=== PATIENT | female | born 1950 | race Caucasian/White ===

== ENCOUNTER 2022-05-13 08:11 | Outpatient (CLI) | payer MEDICARE, SELFPAY ==
[2022-05-13 09:38] LABS: Albumin* 4.1 g/dL (3.3-5.0); Chloride* 106 mmol/L (96-114); Potassium* 4.2 mmol/L (3.6-5.1)
[2022-05-13 09:40] LABS: Cholesterol* 226 mg/dL (90-199); Creatinine* 0.8 mg/dL (0.5-1.5); Estimated Glomerular Filt Rate 79.71
[2022-05-13 09:41] LABS: Alanine Aminotransferase* 42 U/L (4-35); Alkaline Phosphatase* 86 U/L (40-150); Aspartate Amino Transferase* 39 U/L (12-35); Bilirubin Total* 0.7 mg/dL (0.1-1.5); Blood Urea Nitrogen* 17 mg/dL (7-30); Carbon Dioxide* 28 mmol/L (20-32); Glucose* 108 mg/dL (60-115); Triglycerides* 140 mg/dL (40-149)
[2022-05-13 09:42] LABS: Calcium* 9.4 mg/dL (8.4-10.6); HDL Cholesterol* 48 mg/dL (>=50); LDL Cholesterol Calculated 150 mg/dL (<100)
[2022-05-13 09:48] LABS: Sodium* 140 mmol/L (135-149)
[2022-05-13 19:22] LABS: Vitamin D 25 Hydroxy* 19 ng/mL (30-80)
== END 2022-05-13 08:12 | disposition home or self-care (01) ==
PROVIDERS: PCP Family Medicine; Visit Provider Family Medicine
DX: Z01.419 Encounter for gynecological examination (general) (routine) without abnormal findings (principal); E78.5 Hyperlipidemia, unspecified; E55.9 Vitamin D deficiency, unspecified; E66.9 Obesity, unspecified; R74.8 Abnormal levels of other serum enzymes; R73.03 Prediabetes; R79.89 Other specified abnormal findings of blood chemistry
CPT/HCPCS: 80053; 80061; 82306

== ENCOUNTER 2022-05-21 14:06 | Outpatient (CLI) | payer MEDICARE, SELFPAY ==
--- NOTE | 2022-05-21 14:00 | CRLHL7_ITS ---
For Patients: As a result of the Century Cures Act, medical imaging exams and procedure reports are released immediately into your electronic medical record. You may view this report before your referring provider. If you have questions, please contact your health care provider. DXA BONE MINERAL DENSITY STUDY Current height (in): 67. Weight (lb): 220. Menopause age: 53. Ethnicity: White. 1. Have you had a previous hip or vertebral fracture? No. 2. Have you had any fractures during your adult life which did not result from significant trauma (e.g., auto accident)? No. 3. Did either of your parents have a hip fracture? No. 4. Do you smoke? No. 5. Have you ever taken Glucocorticoids? No. 6. Do you have rheumatoid arthritis? No. 7. Do you have secondary osteoporosis? No. 8. Do you drink 3 or more alcoholic drinks per day? No. 9. Are you being treated for osteoporosis? No. 10. Have you ever taken any of the following medications: Actonel, Evista, Fosamax, Miacalcin, Reclast, Boniva, Forteo, HRT (i.e. estrogen/hormone therapy), Protelos, Prolia, Vitamin D, Calcium, other ??? please specify. ANSWER: Yes, vitamin D, calcium. 11. Do you have any of the following medical conditions: Anorexia or bulimia, asthma or emphysema, end stage renal disease, hyperparathyroidism, any seizure disorders, cancer, inflammatory bowel diseases, hysterectomy, other ??? please specify. ANSWER: No. 12. What was your maximum height (inches)? 67.5. 13. Do you perform weight bearing exercise regularly? No. 14. Do you regularly consume dairy products? Yes. 15. Do you drink caffeinated beverages? Yes. 16. At what age did your period start? 14. 17. Are you premenopausal? No. 18. How many full term pregnancies have you had? 1. 19. Have you ever missed your period for more than 6 months in a row (not including or menopause)? No. TECHNIQUE: Bone mineral density study was performed using the [employer]. FINDINGS: The results of the study expressed as bone mineral density (BMD) are as follows: Lumbar spine L1 to L4: BMD: 0.982 g/cm2. T-score: -0.6. Z-score: 1.5. Neck Left: BMD: 0.712 g/cm2. T-score: -1.2. Z-score: 0.5. Right: BMD: 0.735 g/cm2. T-score: -1.0. Z-score: 0.8. Total Left: BMD: 0.921 g/cm2. T-score: -0.2. Z-score: 1.3. Right: BMD: 0.937 g/cm2. T-score: -0.0. Z-score: 1.4. IMPRESSION: Osteopenia. *Comparison exams done prior to 04/2020 were performed on different unit, [facility]. COMPARISON: Compared with scan of 10/20/2018, the bone mineral density has increased by 3.4 percent at the spine and increased by 2.3 percent at the hip. FRAX 10-year Fracture Risk Major Osteoporotic Fracture: 8.5 percent Hip Fracture: 0.9 percent Reported Risk Factors: [place] ) Neck BMD = 0.712, BMI = 34.5 Easton Schultz M.D. Diagnostic Radiologist [email or web address] LOULOU/Dictated by: Easton Schultz MD @ 05/21/2022 3:14:00 PM (Electronically Signed)
== END 2022-05-21 14:07 | disposition home or self-care (01) ==
LOC: RAD 14:06
PROVIDERS: PCP Family Medicine; Visit Provider Family Medicine
DX: Z13.820 Encounter for screening for osteoporosis (principal); M85.89 Other specified disorders of bone density and structure, multiple sites; Z78.0 Asymptomatic menopausal state
CPT/HCPCS: 77080

== ENCOUNTER 2022-05-29 09:22 | Outpatient (CLI) | payer MEDICARE, SELFPAY ==
--- NOTE | 2022-05-29 09:15 | CRLHL7_ITS ---
For Patients: As a result of the Century Cures Act, medical imaging exams and procedure reports are released immediately into your electronic medical record. You may view this report before your referring provider. If you have questions, please contact your health care provider. BILATERAL MAMMOGRAM WITH COMPUTER-AIDED DETECTION TECHNIQUE: CC and MLO views were obtained. These mammographic images have been obtained using full-field digital technique. These mammographic images were interpreted with the benefit of computer-aided detection. COMPARISON FILM: 02/03/21, 10/04/18, 02/22/17 FINDINGS: There are scattered areas of fibroglandular density IMPRESSION: There is no radiographic evidence for malignancy. ASSESSMENT: BI-RADS Category 1: Negative RECOMMENDATION: Routine screening mammogram in 1 year. A lay language report of this examination will be provided to the patient. Larissa Kendall M.D. Diagnostic/Breast Radiologist [email or web address] LOULOU/Dictated by: Larissa Kendall MD @ 05/29/2022 4:39:00 PM (Electronically Signed)
== END 2022-05-29 09:23 | disposition home or self-care (01) ==
LOC: MAMMO 09:23
PROVIDERS: PCP Family Medicine; Visit Provider Family Medicine
DX: Z12.31 Encounter for screening mammogram for malignant neoplasm of breast (principal)
CPT/HCPCS: 77063; 77067

== ENCOUNTER 2022-08-20 08:19 | Outpatient (CLI) | payer MEDICARE, SELFPAY ==
[2022-08-20 10:35] LABS: Albumin* 4.2 g/dL (3.3-5.0)
[2022-08-20 10:38] LABS: Bilirubin Direct* 0.1 mg/dL (0.0-0.5); Bilirubin Total* 0.4 mg/dL (0.1-1.5); Cholesterol* 149 mg/dL (90-199); Total Protein* 6.9 g/dL (6.0-8.3); Triglycerides* 88 mg/dL (40-149)
[2022-08-20 10:39] LABS: Alanine Aminotransferase* 25 U/L (4-35); Alkaline Phosphatase* 87 U/L (40-150); Aspartate Amino Transferase* 26 U/L (12-35); HDL Cholesterol* 53 mg/dL (>=50); LDL Cholesterol Calculated 78 mg/dL (<100)
[2022-08-20 10:53] LABS: Vitamin D 25 Hydroxy* 29 ng/mL (30-80)
== END 2022-08-20 08:20 | disposition home or self-care (01) ==
PROVIDERS: PCP Family Medicine; Visit Provider Family Medicine
DX: E55.9 Vitamin D deficiency, unspecified (principal); E78.5 Hyperlipidemia, unspecified; R79.89 Other specified abnormal findings of blood chemistry
CPT/HCPCS: 80061; 80076; 82306

== ENCOUNTER 2023-05-24 08:21 | Outpatient (CLI) | payer MEDICARE, SELFPAY | END 2023-05-24 08:22 | disposition home or self-care (01) | LOC: NFLDREF 12:53 | PROVIDERS: PCP Family Medicine; Referring Provider Family Medicine; Visit Provider Family Medicine | DX: E55.9 Vitamin D deficiency, unspecified (principal); M85.80 Other specified disorders of bone density and structure, unspecified site; R79.89 Other specified abnormal findings of blood chemistry; E78.5 Hyperlipidemia, unspecified; R73.03 Prediabetes | CPT/HCPCS: 80053; 80061; 82306 ==

== ENCOUNTER 2023-08-19 13:42 | Outpatient (CLI) | payer MEDICARE, SELFPAY ==
--- NOTE | 2023-08-19 14:00 | CRLHL7_ITS ---
For Patients: As a result of the Century Cures Act, medical imaging exams and procedure reports are released immediately into your electronic medical record. You may view this report before your referring provider. If you have questions, please contact your health care provider. BILATERAL SCREENING MAMMOGRAM WITH COMPUTER-AIDED DETECTION TECHNIQUE: CC and MLO views were obtained. These mammographic images have been obtained using full-field digital technique. These mammographic images were interpreted with the benefit of computer-aided detection. COMPARISON FILM: 05/29/22, 02/03/21, 10/04/18. FINDINGS: There are scattered areas of fibroglandular density. IMPRESSION: There is no radiographic evidence for malignancy. ASSESSMENT: BI-RADS Category 2: Benign RECOMMENDATION: Routine screening mammogram in 1 year. A lay language report of this examination will be provided to the patient. CHELSIE WILLSON M.D. Diagnostic/Nuclear Medicine Radiologist [email or web address] Transcribed: 1:[address]/Dictated by: Chelsie Willson MD @ 08/20/2023 10:06:00 AM (Electronically Signed)
== END 2023-08-19 13:43 | disposition home or self-care (01) ==
LOC: MAMMO 13:43
PROVIDERS: PCP Family Medicine; Visit Provider Family Medicine
DX: Z12.31 Encounter for screening mammogram for malignant neoplasm of breast (principal)
CPT/HCPCS: 77067

== ENCOUNTER 2024-05-29 08:39 | Outpatient (CLI) | payer MEDICARE, SELFPAY | END 2024-05-29 08:40 | disposition home or self-care (01) | LOC: NFLDREF 05-30 10:48 | PROVIDERS: PCP Family Medicine; Referring Provider Family Medicine; Visit Provider Family Medicine | DX: R53.83 Other fatigue (principal); E78.5 Hyperlipidemia, unspecified; F41.1 Generalized anxiety disorder; R73.01 Impaired fasting glucose; E55.9 Vitamin D deficiency, unspecified | CPT/HCPCS: 80053; 80061; 82306; 84443 ==

== ENCOUNTER 2025-01-15 15:26 | Outpatient (CLI) | payer MEDICARE, SELFPAY ==
--- NOTE | 2025-01-15 15:20 | CRLHL7_ITS ---
For Patients: As a result of the Cures Act, medical imaging exams and procedure reports are released immediately into your electronic medical record. You may view this report before your referring provider. If you have questions, please contact your health care provider. BILATERAL SCREENING MAMMOGRAM WITH COMPUTER-AIDED DETECTION AND TOMOSYNTHESIS TECHNIQUE: CC and MLO views were obtained. These mammographic images have been obtained using full-field digital technique. These mammographic images were interpreted with the benefit of computer-aided detection. Breast Tomosynthesis was used in this interpretation. COMPARISON FILM: 08/19/23, 05/29/22, 02/03/21. FINDINGS: There are scattered areas of fibroglandular density IMPRESSION: There is no radiographic evidence for malignancy. ASSESSMENT: BI-RADS Category 2: Benign RECOMMENDATION: Routine screening mammogram in 1 year. A lay language report of this examination will be provided to the patient. Easton Schultz M.D. Diagnostic Radiologist [email or web address] DARELL/lottie Transcribed: 3:24 p.nish tafoya/Dictated by: Easton Schultz MD @ 01/16/2025 9:01:00 AM (Electronically Signed)
== END 2025-01-15 15:27 | disposition home or self-care (01) ==
LOC: MAMMO 15:27
PROVIDERS: PCP Family Medicine; Visit Provider Family Medicine
DX: Z12.31 Encounter for screening mammogram for malignant neoplasm of breast (principal)
CPT/HCPCS: 77063; 77067

== ENCOUNTER 2025-01-19 11:10 | Outpatient (CLI) | payer MEDICARE, SELFPAY | END 2025-01-19 11:11 | disposition home or self-care (01) | PROVIDERS: PCP Family Medicine; Visit Provider Family Medicine | DX: R19.7 Diarrhea, unspecified (principal); R53.1 Weakness; R63.4 Abnormal weight loss | CPT/HCPCS: 80053; 84443 ==

== ENCOUNTER 2025-04-17 11:47 | Outpatient (CLI) | payer MEDICARE, SELFPAY ==
--- NOTE | 2025-04-17 12:47 | P.ANES_ITS ---
Anesthesia Charges Start Date/Time Anesthesia Start Date: 04/17/25 Anesthesia Start Time: 12:23 Stop Date/Time Anesthesia Stop Date: 04/17/25 Anesthesia Stop Time: 12:45 Summary Extremes of Age - Over 70 or under 1: MECHANICAL LEAD Coding CPT Codes CPT Codes: ANES LWR INTST SCR COLSC - 26089 ([id number]) P3 - PATIENT W/SEVERE SYS DISEASE, QK - USED CAR MAKE READY MECHANIC 2-4 CNCRNT ANES PROC, QX - MECHANICAL LEAD SVC W/ MD MED DIRECTION Additional Codes: Summary - Extremes of Age - Over 70 or under 1: MECHANICAL LEAD ([id number])
--- NOTE | 2025-04-17 12:47 | W.ANESCHARGE ---
Anesthesia Charges Start Date/Time Anesthesia Start Date: 04/17/25 Anesthesia Start Time: 12:23 Stop Date/Time Anesthesia Stop Date: 04/17/25 Anesthesia Stop Time: 12:45 Summary Extremes of Age - Over 70 or under 1: PAVER OPERATOR Coding CPT Codes CPT Codes: ANES LWR INTST SCR COLSC - 51037 ([id number]) P3 - PATIENT W/SEVERE SYS DISEASE, QK - SUTURE POLISHER 2-4 CNCRNT ANES PROC, QX - PAVER OPERATOR SVC W/ MD MED DIRECTION Additional Codes: Summary - Extremes of Age - Over 70 or under 1: PAVER OPERATOR ([id number])
--- NOTE | 2025-04-17 13:43 | P.ANES_ITS ---
Anesthesia Charges Start Date/Time Anesthesia Start Date: 04/17/25 Anesthesia Start Time: 12:23 Stop Date/Time Anesthesia Stop Date: 04/17/25 Anesthesia Stop Time: 12:45 Summary Extremes of Age - Over 70 or under 1: MDA Coding CPT Codes CPT Codes: ANES LWR INTST SCR COLSC - 22054 ([id number]) P3 - PATIENT W/SEVERE SYS DISEASE, QX - MACHINE MILKER SVC W/ MD MED DIRECTION, QK - FERRYBOAT OPERATOR 2-4 CNCRNT ANES PROC Additional Codes: Summary - Extremes of Age - Over 70 or under 1: MDA ([id number])
--- NOTE | 2025-04-17 13:43 | W.ANESCHARGE ---
Anesthesia Charges Start Date/Time Anesthesia Start Date: 04/17/25 Anesthesia Start Time: 12:23 Stop Date/Time Anesthesia Stop Date: 04/17/25 Anesthesia Stop Time: 12:45 Summary Extremes of Age - Over 70 or under 1: MDA Coding CPT Codes CPT Codes: ANES LWR INTST SCR COLSC - 82364 ([id number]) P3 - PATIENT W/SEVERE SYS DISEASE, QX - VETERINARIAN POULTRY SVC W/ MD MED DIRECTION, QK - GENERAL MACHINIST 2-4 CNCRNT ANES PROC Additional Codes: Summary - Extremes of Age - Over 70 or under 1: MDA ([id number])
== END 2025-04-17 11:48 | disposition home or self-care (01) ==
LOC: OP CLINIC 11:50
PROVIDERS: PCP Family Medicine; Visit Provider Surgery
DX: Z12.11 Encounter for screening for malignant neoplasm of colon (principal); K64.8 Other hemorrhoids
CPT/HCPCS: 00812; 45378; 99100; J2704

== ENCOUNTER 2025-06-04 08:10 | Outpatient (CLI) | payer MEDICARE, SELFPAY | END 2025-06-04 08:11 | disposition home or self-care (01) | LOC: NFLDREF 06-06 15:10 | PROVIDERS: PCP Family Medicine; Referring Provider Family Medicine; Visit Provider Family Medicine | DX: E78.5 Hyperlipidemia, unspecified (principal); R79.89 Other specified abnormal findings of blood chemistry; M85.89 Other specified disorders of bone density and structure, multiple sites; E55.9 Vitamin D deficiency, unspecified; R73.03 Prediabetes; M81.0 Age-related osteoporosis without current pathological fracture | CPT/HCPCS: 80053; 80061; 82306 ==